=== PATIENT | male | born 1960 | race Asian ===

== ENCOUNTER 2023-07-26 17:26 | Emergency (ER) | payer SELFPAY ==
--- NOTE | 2023-07-26 18:40 | RAD REPORT ---
EXAM DESCRIPTION: CT - Thorax Wo Con - 07/26/2023 6:30 pm CLINICAL HISTORY: BLUNT CHEST TRAUMA COMPARISON: No comparisons FINDINGS: Chest Wall: No suspicious thyroid nodules or pathologic lymphadenopathy. Lungs: No acute abnormality. Pleura: No significant effusions or pneumothorax. Mediastinum/izabela: No pathologic lymphadenopathy. Pulmonary arteries/Aorta: Limited evaluation without contrast. No aortic aneurysm. Heart: No significant pericardial effusion. Normal heart size. Upper abdomen: No acute abnormality. Bones: No acute abnormality. All CT scans are performed using dose optimization technique as appropriate and may include automated exposure control or mA/KV adjustment according to patient size. IMPRESSION: No evidence of significant trauma to the chest. No pneumothorax .
--- NOTE | 2023-07-26 18:56 | ER ---
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 No head injury or LOC. Coronavirus screen: Client denies travel out of the [place] in the last 14 days. At this time, the client does not indicate any symptoms associated with coronavirus-19. Ebola Screen: Patient denies travel to an Ebola-affected area in the 21 days before illness onset. Initial Sepsis Screen: Does the patient meet any 2 criteria? No. Patient's initial sepsis screen is negative. Does the patient have a suspected source of infection? No. Patient's initial sepsis screen is negative. Risk Assessment: Do you want to hurt yourself or someone else? Patient reports no desire to harm self or others. Onset of symptoms was July 26, 2023. 17:46 Method Of Arrival: Wheelchair ll1 17:46 Acuity: BONG 4 ll1 Triage Assessment: 17:50 General: Appears uncomfortable, Behavior is calm, cooperative, appropriate for age. ll1 Pain: Complains of pain in L chest/trunk Pain currently is 4 out of 10 on a pain scale. Quality of pain is described as aching, Pain began 30 min ago. Aggravated by increased activity. Musculoskeletal: Reports pain in L chest/trunk. Historical: - Allergies: 17:47 No Known Allergies; ll1 - PMHx: 17:47 None; ll1 - PSHx: 17:47 None; ll1 - Immunization history:: Adult Immunizations up to date. - Infectious Disease History:: Denies. - Social history:: Smoking status: Patient denies any tobacco usage or history of. Screenin:00 Abuse screen: Denies threats or abuse. Denies injuries from another. jw7 19:00 [facility] ED Fall Risk Assessment (Adult) History of falling in the last 3 months, jw7 including since admission Yes- single mechanical fall (1 pt) Confusion or Disorientation No (0 pts) Intoxicated or Sedated No (0 pts) Impaired Gait No (0 pts) Mobility Assist Device Used No (0 pt) Altered Elimination No (0 pt) Score/Fall Risk Level 0 - 2 = Low Risk Oriented to surroundings, Maintained a safe environment, Educated pt \T\ family on fall prevention, incl call for assistance when getting out of bed. Nutritional screening: No deficits noted. Tuberculosis screening: No symptoms or risk factors identified. Assessment: 18:48 Reassessment: No changes from previously documented assessment. Patient and/or family ll1 updated on plan of care and expected duration. Pain level reassessed. 19:00 General: Appears in no apparent distress. uncomfortable, Behavior is calm, cooperative. jw7 Pain: Pain: Complains of pain in chest Pain does not radiate. Pain currently is 4 out of 10 on a pain scale. Quality of pain is described as throbbing, Pain began suddenly, Is continuous. 19:00 Neuro: Level of Consciousness is awake, alert, obeys commands, Oriented to person, jw7 place, time, situation. Cardiovascular: Heart tones S1 S2 present Capillary refill < 3 seconds Clubbing of nail beds is absent JVD is absent Patient's skin is warm and dry. Respiratory: Airway is patent Trachea midline Respiratory effort is even, unlabored, Respiratory pattern is regular, symmetrical, Breath sounds are clear bilaterally. GI: No deficits noted. No signs and/or symptoms were reported involving the gastrointestinal system. : No deficits noted. No signs and/or symptoms were reported regarding the genitourinary system. EENT: No deficits noted. No signs and/or symptoms were reported regarding the EENT system. Derm: Skin is intact, is healthy with good turgor, Skin is dry, Skin is normal, Skin temperature is warm. Musculoskeletal: Circulation, motion, and sensation intact. Range of motion: intact in all extremities. Vital Signs: 17:46 BP 117 / 71; Pulse 87; Resp 16; Temp 98; Pulse Ox 99% ; Pain 4/10; ll1 19:18 BP 115 / 67; Pulse 88; Resp 16 S; Pulse Ox 98% on R/A; jw7 17:46 Pain Scale: Adult ll1 ED Course: 17:27 Patient arrived in ED. rg4 17:47 Triage completed. ll1 17:48 Arm band placed on. ll1 17:54 Chaparro Odom MD is Attending Physician. bo1 18:32 CT Chest Wo Con In Process Unspecified. EDMS 18:47 Patient placed in an exam room, on a stretcher. ll1 18:58 Rhonda Almaraz, RN is Primary Nurse. nj1 19:00 Patient has correct armband on for positive identification. Bed in low position. Call jw7 light in reach. Provided Education on: Use of Call LIght. 19:17 No provider procedures requiring assistance completed. Patient did not have IV access jw7 during this emergency room visit. Administered Medications: 19:13 Drug: Ketorolac IM 60 mg IM once Route: IM; Site: right deltoid; jw7 19:13 Follow up: Response: No adverse reaction jw7 Medication: 19:17 VIS not applicable for this client. jw7 Outcome: 18:56 Discharge ordered by . bo1 19:17 Discharged to home ambulatory, jw7 19:17 Condition: stable 19:17 Discharge instructions given to patient, family, Instructed on discharge instructions, follow up and referral plans. medication usage, Demonstrated understanding of instructions, follow-up care, medications, Prescriptions given X 1, 19:19 Patient left the ED. jw7 Signatures: Dispatcher [employer] EDMS Mara Lazaro rg4 Nikunj Donnelly RN RN ll1 Sana Brambila RN RN jw7 Rhonda Almaraz, RN RN nj1 Chaparro Odom MD MD bo1 Corrections: (The following items were deleted from the chart) 17:49 17:46 Chief complaint: Patient states: Slipped at pool and hit L side of chest/trunk on ll1 concrete. No head injury or LOC. ll1 19:15 19:00 General: Appears in no apparent distress. uncomfortable, Behavior is calm, jw7 cooperative, jw7 19:15 19:00 Pain: jw7 jw7
--- NOTE | 2023-07-26 18:56 | EDPHYS ---
Physician Documentation [facility] Name: Candis Longo Age: 62 yrs Sex: Male : 1960 Arrival Date: 07/26/2023 Time: 17:26 Bed 11 Private MD: ED Physician Chaparro Odom HPI: 07/25 18:19 Details of fall: The patient fell from an upright position, during sports, Pt was bo1 getting out from swimming and fell onto his left chest wall... it hurts to breathe and move. A friend is here speaking for him.. Historical: - Allergies: 17:47 No Known Allergies; ll1 - PMHx: 17:47 None; ll1 - PSHx: 17:47 None; ll1 - Immunization history:: Adult Immunizations up to date. - Infectious Disease History:: Denies. - Social history:: Smoking status: Patient denies any tobacco usage or history of. ROS: 18:20 Respiratory: Positive for "pain" when taking a deep breath, bo1 Exam: 18:35 Respiratory: the patient does not display signs of respiratory distress, Respirations: bo1 shallow respirations, that is mild, Breath sounds: are clear throughout, 18:35 Skin: injury, abrasion(s), moderate sized abrasion noted, lateral left chest/ribs. No lacerations or ecchymoses, Vital Signs: 17:46 BP 117 / 71; Pulse 87; Resp 16; Temp 98; Pulse Ox 99% ; Pain 4/10; ll1 19:18 BP 115 / 67; Pulse 88; Resp 16 S; Pulse Ox 98% on R/A; jw7 17:46 Pain Scale: Adult ll1 MDM: 18:51 Patient medically screened. bo1 18:53 Differential diagnosis: contusion, fracture. bo1 18:53 ED course: Pt has been reassured and informed of his CT results. No fractures.. bo1 07/25 18:18 Order name: CT Chest Wo Con; Complete Time: 18:51 bo1 Administered Medications: 19:13 Drug: Ketorolac IM 60 mg IM once Route: IM; Site: right deltoid; jw7 19:13 Follow up: Response: No adverse reaction jw7 Disposition Summary: 07/26/23 18:56 Discharge Ordered Notes: Location: Home bo1 Problem: new bo1 Symptoms: are unchanged bo1 Condition: Stable bo1 Diagnosis - Contusion of left front wall of thorax bo1 Followup: bo1 - With: Private Physician - When: As needed - Reason: Discharge Instructions: - Discharge Summary Sheet bo1 - Chest Contusion, Adult bo1 Forms: - Medication Reconciliation Form bo1 - Thank You Letter bo1 - Antibiotic Education bo1 - Prescription Opioid Use bo1 - Patient Portal Instructions bo1 - Leadership Thank You Letter bo1 Prescriptions: - KETOROLAC - take 10 milligram ORAL route 3-4 times daily for 1 week; 40 tablet; Refills: 0, bo1 Product Selection Permitted Signatures: Dispatcher [employer] Nikunj Porter RN RN ll1 Sana Brambila RN RN jw7 Chaparro Odom MD MD bo1
[2023-07-26] MEDS ORDERED: KETOROLAC 30 MG/ML INJ ONE (19:01)
[2023-07-26 21:47] VITALS: BP 115/67; TEMP 98; O2SAT 98
== END 2023-07-26 19:19 | disposition home or self-care (01) ==
LOC: ER 17:26
DX: S20.212A Contusion of left front wall of thorax, initial encounter (principal)
CPT/HCPCS: 71250; 96372; 99284